=== PATIENT | male | born 1990 | race Caucasian/White ===

== ENCOUNTER 2021-08-12 20:53 | Emergency (ER) | payer OTHER, SELFPAY ==
--- NOTE | ~2021-08-12 | CT_ITS ---
EXAMINATION: CT abdomen pelvis w con DATE: 08/12/2021 23:36 INDICATION: Right lower quadrant abdominal pain. Fever. TECHNIQUE: Computed tomography (CT) of the abdomen and pelvis was performed with 100 mL Omnipaque-350 intravenous contrast. Automated exposure control and iterative reconstruction technique were employe d. The dose-length product was 374.73 mGy-cm. COMPARISON: None FINDINGS: Small calcified nodules in the bilateral lower lobes consistent with old granulomatous disease. Heart size is normal. No pericardial or pleural effusion. Liver, gallbladder, spleen, pancreas, bilateral adrenal glands and kidneys are normal. Bowels including the appendix are normal. Bladder and prostate are normal. No free intraperitoneal gas or fluid. No pathologically enlarged abdominal or pelvic lym phadenopathy. 4 mm retrolisthesis L5 on S1. Small sclerotic bone islands at the right femoral head an d subtrochanteric left femur. IMPRESSION: 1. No acute intra-abdominal/pelvic process. Reviewed, dictated and finalized at location A. BEHAVIOR ANALYST
--- NOTE | ~2021-08-12 | XR_ITS ---
EXAMINATION: XR chest 1V portable DATE: 08/12/2021 21:49 INDICATION: Fever, nausea, vomiting and body aches. TECHNIQUE: frontal view of the chest was obtained. COMPARISON: None FINDINGS: The lungs are clear with no focal airspace opacities, pulmonary edema, pleural effusion or pneumothor ax. The cardiomediastinal silhouette is normal. Visualized bones and soft tissues are unremarkable. IMPRESSION: 1. No acute cardiopulmonary disease. Reviewed, dictated and finalized at location A. S ASSEMBLER
--- NOTE | ~2021-08-12 | CT_ITS ---
EXAMINATION: CT brain wo con DATE: 08/12/2021 23:36 INDICATION: Headache. Fever. TECHNIQUE: Computed tomography (CT) of the head was performed without intravenous contrast. Sagittal and coronal reconstructions were performed. The mA was adjusted according to patient size. Iterative reconstruction technique was employed. The dose-length product was 681.00 mGy-cm. COMPARISON: None FINDINGS: No acute intracranial hemorrhage, acute infarction or abnormal extra axial fluid collection. Ventricl es are normal and symmetric. No mass/mass effect. The orbits, paranasal sinuses and mastoid air cells are normal. IMPRESSION: 1. Normal head CT. No acute intracranial process. Reviewed, dictated and finalized at location A. TRUCTION CARPENTER
[2021-08-12 21:18] VITALS: BP 129/81; PULSE 116; RESP 20; TEMP 37.8; O2SAT 98
[2021-08-12 21:38] LABS: Basophils Absolute Auto 0.1 K/mm3 (0.0-0.1); Basophils Percent Auto 0.3 % (0.2-1.2); Eosinophils Absolute Auto 0.1 K/mm3 (0-0.3); Eosinophils Percent Auto 0.4 % (0-4.4); Immature Granulocyte Percent A 0.6 % (0-0.5); Lymphocytes Absolute Auto 0.94 K/mm3 (0.9-3.2); Lymphocytes Percent Auto 5.2 % (18.3-44.2); Mean Corpuscular Hemoglobin 31.3 pg (26-34); Mean Corpuscular Volume 92.1 fl (80-100); Mean Platelet Volume 10.4 fl (7.4-10.4); Monocytes Absolute Auto 1.2 K/mm3 (0.1-0.6); Monocytes Percent Auto 6.4 % (2.6-8.5); Neutrophils Absolute Auto 15.6 K/mm3 (1.3-6.7); Neutrophils Percent Auto 87.1 % (45.5-73.1); Platelet Count Result 225 k/mm3 (150-375); Red Blood Count 5.43 M/mm3 (4.6-6.20); Red Cell Distribution Width 13.6 % (11.5-14.5); White Blood Count 17.9 K/mm3 (4.5-10.0)
--- NOTE | 2021-08-12 21:38 | PC.NURSE ---
Called lab and spoke to Ez to add on CRP
--- NOTE | 2021-08-12 21:43 | WPDEDEXPGENP ---
HPI - General Ped General Chief complaint: Fever Stated complaint: dental Time Seen by Provider: 08/12/21 21:32 Source: patient Mode of arrival: ambulatory Limitations: no limitations History of Present Illness HPI narrative: Patient is 30 years old white male presents with intermittent dental pain mainly on the right lower side for months, got worse over the last 3 to 4 days, patient is telling me that he has a golf ball sized abscess at the right lower gum yesterday which suddenly started leaking pus inside his mouth associated with nausea and vomiting at least 5-6 times early today with body aches, patient also complaining of aches and pain of the lower extremities. Girlfriend drove him to the emergency room, history of Covid infection first week of May 2021 patient reported that the abscess popped today and started leaking bad testy discharge. Patient denies any sore throat, ear ache, coughing, shortness of breath, pain, back pain or neck pain. Related Data Allergies Allergy/AdvReac Type Severity Reaction Status Date / Time Penicillins Allergy Unknown Verified 08/12/21 21:23 Pediatric Review of Systems Review of Systems: CONSTITUTIONAL: Denies fever, chills, or sweats. EYES: Denies visual changes, redness, or discharge. ENT: Denies rhinorrhea, congestion, sore throat, or otalgia. CARDIOVASCULAR: Denies chest pain, palpitations, or edema. RESPIRATORY: Denies cough or dyspnea. GASTROINTESTINAL: Denies abdominal pain, nausea, vomiting, or diarrhea. GENITOURINARY: Denies dysuria or hematuria. SKIN: Denies rash or itching. MUSCULOSKELETAL: Denies back pain, joint pain, or myalgia. NEUROLOGIC: Denies headache, numbness, or weakness. PSYCHIATRIC: Denies anxiety or depression. Pediatric Exam Narrative: Physical exam: General appearance: Well-developed, well-nourished Skin: Normal color Head: Normocephalic, nontraumatic Eyes: Clear conjunctiva ENT: Oropharynx normal, ears normal, nose normal, extensive dental decay right upper and right lower teeth including broken teeth, no abscess, no obvious discharge slight tenderness of the gum mainly of the right lower side Neck: Supple, nontender Chest and respiratory: Airway patent, no respiratory distress, no accessory muscle use Heart: Regular rate/rhythm Abdomen: Moderate tenderness right lower quadrant, positive guarding, no rebound, quiet bowel sounds Vascular: Normal peripheral pulses, normal capillary refill. Neurologic: Alert and oriented ?3, PUBLIC HEALTH CLINICAL NURSE SPECIALIST is normal as tested, no gross motor deficit Course Course Emergency Course: Stable Reevaluation(s) Reevaluation #1: Currently patient feels abdominal pain,. Denying any headache or dental pain. Patient is able to keep food and fluid down. Vital Signs Vital signs: Vital Signs Temperature 37.8 C H 08/12/21 21:18 Pulse Rate 116 H 08/12/21 21:18 Respiratory Rate 20 08/12/21 21:18 Blood Pressure 129/81 08/12/21 21:18 Pulse Oximetry 98 08/12/21 21:18 Temperature 37.8 C H 08/12/21 21:18 Pulse Rate 96 08/12/21 23:58 Respiratory Rate 16 08/12/21 23:58 Blood Pressure 129/91 H 08/12/21 23:58 Pulse Oximetry 97 08/12/21 23:58 Medical Decision Making MDM Narrative Medical decision making narrative: Dental infection Vital Signs Vital Signs: Vital Signs Temperature 37.8 C H 08/12/21 21:18 Pulse Rate 116 H 08/12/21 21:18 Respiratory Rate 20 08/12/21 21:18 Blood Pressure 129/81 08/12/21 21:18 Pulse Oximetry 98 08/12/21 21:18 Temperature 37.8 C H 08/12/21 21:18 Pulse Rate 96 08/12/21 23:58 Respiratory Rate 16 08/12/21 23:58 Blood Pressure 129/91 H 08/12/21 23:58 Pulse Oximetry 97 08/12/21 23:58
[2021-08-12 22:16] LABS: CRP 3.2 mg/dL (<1.0)
[2021-08-12 22:17] LABS: Alanine Aminotransferase 43 U/L (4-50); Albumin Level 4.4 g/dL (3.5-5.1); Alkaline Phosphatase 108 U/L (38-126); Anion Gap 9 mmol/L (8-16); Aspartate Amino Transferase 31 U/L (17-59); Bilirubin,Total 0.6 mg/dL (0.2-1.3); Blood Urea Nitrogen 14 mg/dL (9-20); Calcium 8.6 mg/dL (8.4-10.2); Carbon Dioxide 22 mmol/L (22-30); Chloride 101 mmol/L (98-107); Estimated CRCL calculation 123 ml/min; Estimated Glomerular Filt Rate > 60; Glucose 110 mg/dL (65-110); Lipase 73 U/L (23-300); Potassium 4.1 mmol/L (3.4-5.0); Sodium 132 mmol/L (137-145)
[2021-08-12 22:55] LABS: Add Urine Microscopic? NO; Appearance Urine Clear (Clear); Bilirubin Urine Negative (Negative); Blood Urine Negative (Negative); Color Urine Yellow (Yellow); Glucose Urine UA Negative (Negative); Ketones Urine Negative (Negative); Leukocyte Esterase Ur Negative LEU/UL (Negative); Nitrate Urine Negative (Negative); Protein Urine Negative (Negative); Specific Grav Ur 1.017 (1.001-1.035); Urobilinogen Urine Negative mg/dL (<2.0)
[2021-08-12] MEDS: KETOROLAC 30 MG/ML VIAL (*BKC) IV PUSH (23:09)
[2021-08-12 23:11] VITALS: BP 132/95; PULSE 105; RESP 18; O2SAT 96
[2021-08-12 23:58] VITALS: BP 129/91; PULSE 96; RESP 16; O2SAT 97
[2021-08-12] MEDS: CLINDAMYCIN 900 MG/D5W 50 ML 900 MG/50 ML PIGGYBACK 50 MG IVPB (23:59)
[2021-08-13 00:55] VITALS: BP 118/65; PULSE 85; RESP 16; O2SAT 96
== END 2021-08-13 01:14 | disposition home or self-care (01) ==
PROVIDERS: Emergency Provider Emergency Medicine
DX: K04.7 Periapical abscess without sinus (principal); K02.9 Dental caries, unspecified
CPT/HCPCS: 36415; 70450; 71045; 74177; 80053; 81003; 83605; 83690; 85025; 86140; 87040; 96365; 96375; 99284; J1885; Q9967